=== PATIENT | female | born 1960 | race Caucasian/White ===

== ENCOUNTER 2019-11-12 15:01 | Observation (INO) | payer OTHER ==
[~2019-11-12] VITALS: Ht 157.5 cm; Wt 94.0 kg
[2019-11-12] VITALS (7 sets, daily range): BP systolic 97–178; BP diastolic 43–98
[2019-11-12 15:33] LABS: HEMATOCRIT 37.7 % (37.0-47.0); HEMOGLOBIN 12.5 g/dl (12.0-16.0); IMMATURE GRANULOCYTES 0.1 % (0.0-5.0); MEAN CELL VOLUME 91.7 fL CALC (80.0-100.0); MEAN CORPUSCULAR HGB 30.4 pG CALC (26.0-32.0); MEAN CORPUSCULAR HGB CONC 33.2 g/dL CAL (32.0-36.0); NEUT# 4.6 thou/uL (2.00-7.15); RED BLOOD COUNT 4.11 mill/uL (4.20-5.60); RED CELL DISTRI WIDTH 13.2 % (11.5-15.5)
[2019-11-12 15:37] LABS: GFR 57 ML/MIN (>=60 (CALC)); GFR FOR AFR.AMER. > 60 ML/MIN (>=60 (CALC))
--- NOTE | 2019-11-12 15:50 | NUR ---
PT BROUGHT TO ROOM 9. DR OCASIO CALLED TO BEDSIDE FOR PATIENT WITH COMPLAINTS OF SUDDEN ONSET RIGHT SIDED TEMPORAL HEADACHE, WITH DIZZINESS STARTING 1 HOUR PRIOR TO ARRIVAL. PT DIZZY AND VOMITED X 2. STROKE ALERT CALLED AT 1512. PT TAKEN TO CT VIA STRETCHER. IV STARTED IN CT AT 1527 AND LABS DRAWN AND SENT. PT MEDICATED FOR NAUSEA AT 1528. TELESTROKE EVALUATION DONE IN CT. PT RETURNED TO ED AT 1550. MONITORS IN PLACE. AT BEDSIDE. PT AO X 3. SKIN PINK WARM AND DRY. IN GOWN. MOVES ALL EXTREMITIES. REPORTS HEADACHE 8/10. MEDICATED FOR PAIN AND DIZZINESS AT 1610
[2019-11-12 15:52] LABS: ALBUMIN 4.5 g/dL (3.2-5.0); ALKALINE PHOSPHATASE 84 u/l (38-126); ANION GAP 11 (6-22 (CALC)); BILIRUBIN, TOTAL 0.5 mg/dL (0.0-1.4); BUN 16 mg/dL (7-17); BUN/CREATININE RATIO 16 (12-20 (CALC)); CARBON DIOXIDE 26 mmol/l (22-30); CHLORIDE 103 mmol/l (95-108); CPK 136 u/l (30-165); ETHYL ALCOHOL 0 mg/dl (0-30); GFR 57 ML/MIN (>=60 (CALC)); GFR FOR AFR.AMER. > 60 ML/MIN (>=60 (CALC)); LIPASE 212 u/l (23-300); POTASSIUM 3.8 mmol/l (3.5-5.1); SGOT/AST 29 u/l (14-36); SODIUM 136 mmol/l (137-146); TOTAL PROTEIN 7.7 g/dL (6.3-8.2)
[2019-11-12 15:58] LABS: ACT PARTIAL THROMBO TIME 25.6 SECONDS (20.0-32.5)
[2019-11-12] MEDS ORDERED: BUSPIRONE5 MG PO (16:19)
[2019-11-12] MEDS ORDERED: TRESIBA100 UNIT/M (16:21)
[2019-11-12 16:22] LABS: TSH, 3RD GENERATION 4.15 uIU/mL (0.47 - 4.68)
[2019-11-12] MEDS ORDERED: NOVOLIN 70/30 F1 IN1 (16:22)
--- NOTE | 2019-11-12 16:48 | NUR ---
PT UP TO BEDSIDE COMMODE. VOIDED 200 ML CLEAR YELLOW URINE. SPECIMEN SENT TO LAB
[2019-11-12 16:55] LABS: URINE BILIRUBIN - DIPSTICK NEGATIVE (NEGATIVE); URINE BLOOD DIPSTICK NEGATIVE (NEGATIVE); URINE COLOR YELLOW; URINE GLUCOSE - DIPSTICK NEGATIVE (NEGATIVE); URINE KETONE NEGATIVE (NEGATIVE); URINE LEUK ESTERASE NEGATIVE (NEGATIVE); URINE NITRITE - DIPSTICK NEGATIVE (Negative); URINE PROTEIN - DIPSTICK NEGATIVE (NEG-TRACE); URINE UROBILINOGEN - DIPSTICK 0.2 E.U./dL (0.2)
--- NOTE | 2019-11-12 17:03 | NUR ---
PT MEDICATED FOR CONTINUED HEAD PAIN 12/07
--- NOTE | 2019-11-12 17:50 | NUR ---
PT RESTING ON STRETCHER, AWAITING ADMISSION. CONTINUES TO REPORT HEADACHE 11/07
--- NOTE | 2019-11-12 17:58 | NUR ---
ICU UNABLE TO TAKE REPORT AT THIS TIME
--- NOTE | 2019-11-12 18:10 | NUR ---
ICU UNABLE TO TAKE PATIENT AT THIS TIME
--- NOTE | 2019-11-12 18:15 | NUR ---
SPOKE TO REWIND OPERATOR R/T CONCERNS ABOUT PTS BP.
--- NOTE | 2019-11-12 18:24 | NUR ---
DR SHERIDAN CONTACTED RE: PTS BP IN THE ER. WRITTEN ORDERS FROM ER FAXED TO [facility]. NEW ORDERS FAXED TO [facility].
--- NOTE | 2019-11-12 18:25 | NUR ---
REPORT GIVEN TO DIANE SANDOVAL IN ICU
--- NOTE | 2019-11-12 18:45 | NUR ---
PT TAKEN VIA STRETCHER, MONIOTOR IN PLACE TO ICU
--- NOTE | 2019-11-12 18:50 | NUR ---
RECEIVED REPORT FROM DIANE SANDOVAL.
--- NOTE | 2019-11-12 19:00 | NUR ---
RECEIVED PT AAOX3, NO NEURO DEFICIT NOTED. C/O 11/07 HEADACHE. REVIEWED ROOM SAFETY. CALL MIMS IN REACH.
--- NOTE | 2019-11-12 19:12 | NUR ---
B/P 178, APRESOLINE 10MG IV GIVEN PER JUL.
--- NOTE | 2019-11-12 20:00 | NUR ---
PT RELATED HEADACHE IMPROVED TO /10. NO NEURO DEFICT NOTED. CALL MIMS IN REACH.
[2019-11-12] MEDS ORDERED: LORATADINE10 M1 PO (20:40)
[2019-11-12] MEDS ORDERED: BUSPAR10 M1 PO (20:41)
[2019-11-12] MEDS ORDERED: BUPROPION HCL150 M1 PO (20:43)
[2019-11-12] MEDS ORDERED: GABAPENTIN300 M2 PO (20:44)
[2019-11-12] MEDS ORDERED: TESSALON PER100 MG PO (20:45)
[2019-11-12] MEDS ORDERED: MECLIZINE25 MG PO (21:02)
[2019-11-12] MEDS ORDERED: NOVOLOG FL100 UNIT/M (21:06)
[2019-11-12] MEDS ORDERED: LIPITOR10 M1 PO (21:06)
--- NOTE | 2019-11-12 22:00 | NUR ---
PT WITH EYES CLOSED, RESPONDS TO VERBAL STIMULI. NO DISTRESS NOTED. CALL MIMS IN REACH.
[2019-11-13] VITALS (10 sets, daily range): BP systolic 95–182; BP diastolic 46–82
--- NOTE | 2019-11-13 | NUR ---
PT WITH EYES CLOSED, RESPONDED TO VERBAL STIMULI. PT RELATED HEADACHE IMPROVED. NO NEURO DEFICITS NOTED. NO NEEDS AT THIS TIME. CALL MIMS IN REACH. B/P 110/51 P58 WHILE AWAKE.
--- NOTE | 2019-11-13 02:00 | NUR ---
PT WITH EYES CLOSED, NO DISTRESS NOTED. CALL MIMS IN REACH.
--- NOTE | 2019-11-13 04:24 | NUR ---
ASSISTED PT TO BATHROOM. VOIDED 500CC YELLOW URINE. PT RELATED THE DIZZINESS AND HER HEADACHE HAS IMPROVED. PT RETURNED TO BED. PT'S OWN GLUCOSE MONITOR SYSTEM, READS 69. JUICE AND CRACKERS PROVIDED. CALL MIMS IN REACH.
--- NOTE | 2019-11-13 06:06 | NUR ---
PT AWAKE AND ALERT, ACCU CHECK 100. PTS OWN BS DEVICE READ 90. NO NEEDS AT THIS TIME, CALL MIMS IN REACH.
--- NOTE | 2019-11-13 06:45 | NUR ---
REPORT TO MERLY SANDOVAL.
--- NOTE | 2019-11-13 06:45 | NUR ---
REPORT RECEIVED FROM NINA SANDOVAL CARE ASSUMED.
--- NOTE | 2019-11-13 07:15 | NUR ---
PT RESTING IN BED WITH EYES CLOSED. AROUSES EASILY TO VERBAL STIMULI. PT IS ALERT AND ORIENTED X3. SHIFT ASSESSMENT ALONG WITH [facility] COMPLETED AT THIS TIME. IV PATENT X1. CALL LIGHT IN REACH. WILL CONTINUE TO MONITOR.
--- NOTE | 2019-11-13 08:00 | NUR ---
PT SET UP FOR AM MEAL.
--- NOTE | 2019-11-13 08:59 | NUR ---
DR FULLER AT BEDSIDE AT THIS TIME.
--- NOTE | 2019-11-13 09:26 | NUR ---
JONNY GAVE VERBAL ORDERS FOR [facility]
--- NOTE | 2019-11-13 09:30 | NUR ---
PT STATES THAT HER HEADACHE HAS WORSENED AND SHE HAS PAIN ALL OVER. PT STATES THAT NECK AND JAW ARE TIGHTENING. PT IS HYPERVENTILATING AT THIS TIME. O2 SATS 100%. HEART RATE 60-80S. BP NOW 215/72. DR FULLER NOTIFIED. PHARMACY CALLED TO VERIFY THAT SYMPTOMS ARE NOT A MEDICATION REACTION. ORDERS RECEIVED FOR ATIVAN. BREATHING EXCERCISES REVEIWED WITH PATIENT. ATIVAN GIVEN PER JUL. ICE PACK PROVIDED FOR NECK. THIS NURSE REMAINED AT BEDSIDE WITH SPOUSE UNTIL PATIENT CALMED.
--- NOTE | 2019-11-13 10:02 | NUR ---
PT NOW RESTING IN BED RESP ARE EVEN AND UNLABORED. BP 163/64. SPOUSE AT BEDSIDE. PT AND SPOUSE REASSURED. CALL LIGHT IN REACH. WILL CONTINUE TO MONITOR.
--- NOTE | 2019-11-13 11:00 | NUR ---
PT RESTING IN BED WITH EYES CLOSED. AROUSES TO VERBAL STIMULI. RESP ARE EVEN AND UNLABORED. VSS ON MONITOR. CALL LIGHT IN REACH. WILL CONTINUE TO MONITOR
--- NOTE | 2019-11-13 11:47 | NUR ---
PT RESTING IN BED WITH SPOUSE AT BEDSIDE. RESP ARE EVEN AND UNLABORED. NO DISTRESS NOTED. CALL LIGHT IN REACH. WILL CONTINUE TO MONITOR.
--- NOTE | 2019-11-13 13:00 | NUR ---
PT TO RADIOLOGY VIA WHEELCHAIR FOR MRI.
--- NOTE | 2019-11-13 13:50 | NUR ---
PT RETURNED FROM RADIOLOGY VIA WHEELCHAIR. PT ASSISTED BACK TO BED AND PLACED ON MONITORS.
--- NOTE | 2019-11-13 16:00 | NUR ---
PT ASSISTED TO BATHROOM TO VOID. PT THEN ASSISTED BACK TO BED. CALL LIGHT IN REACH. WILL CONTINUE TO MONITOR.
[2019-11-13] MEDS ORDERED: ASPIRIN CHEWABL81 MG PO (16:26)
[2019-11-13] MEDS ORDERED: XANAX0.25 MG PO (16:28)
--- NOTE | 2019-11-13 16:30 | NUR ---
DR FULLER NOTIFIED OF MRI RESULTS
--- NOTE | 2019-11-13 17:43 | NUR ---
PT SET UP FOR PM MEAL. GUEST TRAY PROVIDED FOR SPOUSE PER PATIENT REQUEST.
--- NOTE | 2019-11-13 18:00 | NUR ---
DISCHARGE INSTRUCTIONS REVIEWED WITH PATIENT AND SPOUSE. BOTH VERBALIZED UNDERSTANDING. IV DC'D.CATH TIP INTACT. PT TOLERATED WELL.
--- NOTE | 2019-11-13 18:15 | NUR ---
Discharge instructions given. Patient verbalizes understanding of same. Discharged in stable condition via Wheelchair to Home with spouse. All belongings sent with pt.
== END 2019-11-13 18:15 | disposition home or self-care (01) | DRG 103 ==
LOC: ED 15:01 → ED-I 17:13 → ED 17:33 → ICU 17:34
PROVIDERS: ADMIT Internal Medicine; ATTEND Internal Medicine
DX: G43.119 Migraine with aura, intractable, without status migrainosus (principal); I16.0 Hypertensive urgency; I10 Essential (primary) hypertension; E11.319 Type 2 diabetes mellitus with unspecified diabetic retinopathy without macular edema; E11.36 Type 2 diabetes mellitus with diabetic cataract; H26.9 Unspecified cataract; H35.30 Unspecified macular degeneration; I25.10 Atherosclerotic heart disease of native coronary artery without angina pectoris; F41.0 Panic disorder [episodic paroxysmal anxiety]; Z79.4 Long term (current) use of insulin; Z11.59 Encounter for screening for other viral diseases
CPT/HCPCS: A9579; J1650; J2060; Q9967

== ENCOUNTER 2019-11-20 08:18 | Observation (INO) | payer OTHER ==
[~2019-11-20] VITALS: Ht 157.5 cm; Wt 91.8 kg
[~2019-11-20 08:18] MED LIST: ASPIRIN CHEWABL81 MG PO; BUPROPION HCL150 M1 PO; BUSPAR10 M1 PO; BUSPIRONE5 MG PO; GABAPENTIN300 M2 PO; LIPITOR10 M1 PO; LORATADINE10 M1 PO; MECLIZINE25 MG PO; NOVOLIN 70/30 F1 IN1; NOVOLOG FL100 UNIT/M; TESSALON PER100 MG PO; TRESIBA100 UNIT/M; XANAX0.25 MG PO
--- NOTE | 2019-11-20 08:33 | NUR ---
PT TO XRAY WITH NURSE VIA STRETCHER AWAKE ALERT AND RESPONSIVE
--- NOTE | 2019-11-20 09:03 | NUR ---
PT RETURNED FROM CT AND IS AWAITING RESULTS
[2019-11-20 09:17] LABS: ALBUMIN 4.1 g/dL (3.2-5.0); ALKALINE PHOSPHATASE 84 u/l (38-126); ANION GAP 9 (6-22 (CALC)); BILIRUBIN, TOTAL 0.4 mg/dL (0.0-1.4); BUN 13 mg/dL (7-17); BUN/CREATININE RATIO 15 (12-20 (CALC)); CARBON DIOXIDE 27 mmol/l (22-30); CHLORIDE 108 mmol/l (95-108); CHOLESTEROL HDL RATIO 3.2 (<4.4 (CALC)); CREATININE 0.9 mg/dL (0.5-1.0); GFR > 60 ML/MIN (>=60 (CALC)); GFR FOR AFR.AMER. > 60 ML/MIN (>=60 (CALC)); POTASSIUM 4.5 mmol/l (3.5-5.1); SGOT/AST 25 u/l (14-36); SODIUM 140 mmol/l (137-146); TOTAL PROTEIN 7.3 g/dL (6.3-8.2)
[2019-11-20 09:29] LABS: MYOGLOBIN 40 ng/mL (0 - 62)
[2019-11-20 09:33] LABS: HEMATOCRIT 40.5 % (37.0-47.0); HEMOGLOBIN 13.2 g/dl (12.0-16.0); IMMATURE GRANULOCYTES 0.2 % (0.0-5.0); MEAN CELL VOLUME 93.1 fL CALC (80.0-100.0); MEAN CORPUSCULAR HGB 30.3 pG CALC (26.0-32.0); MEAN CORPUSCULAR HGB CONC 32.6 g/dL CAL (32.0-36.0); NEUT# 2.49 thou/uL (2.00-7.15); RED BLOOD COUNT 4.35 mill/uL (4.20-5.60); RED CELL DISTRI WIDTH 12.8 % (11.5-15.5)
[2019-11-20 09:41] LABS: INTERNATIONAL NORMALIZED RATIO 0.9 RATIO (0.7-1.3); PROTHROMBIN TIME 9.7 SECONDS (9.0-12.5)
--- NOTE | 2019-11-20 09:59 | NUR ---
PT RESTING COMFORTABLY WAITING ON RESULTS FROM TESTING
--- NOTE | 2019-11-20 10:50 | NUR ---
PT IS RESTING COMFORTABLY WAITING FOR ROOM ASSIGNMENT
--- NOTE | 2019-11-20 11:50 | NUR ---
PT IS RESTING. NO DISTRESS NOTED.
--- NOTE | 2019-11-20 12:15 | NUR ---
PT WAS TRANSFERRED UPSTAIRS BY STRETCHER. Admission Note Report Given to: SYMONE Transported by: Wheelchair X Stretcher Transported with: X Nurse Transporter X Patent IV O2 X Studio Designer Location: ICU X MS2
[2019-11-20 12:25] VITALS: BP 125/54
--- NOTE | 2019-11-20 13:00 | NUR ---
PT ARRIVES TO ROOM 272 FROM ER VIA WHEELCHAIR, ALERT AND ORIENTED X 3. LUNGS CLEAR, RA. NO NEURO DEFICITS NOTED. ACCOMPANYING. MEAL TRAY PROVIDED, ENJOYED.
[2019-11-20 15:17] VITALS: BP 130/50
--- NOTE | 2019-11-20 16:48 | NUR ---
PT SEEN AT REST IN THE BED, NO DISTRESS, NO NEURO ISSUE. AT BEDSIDE.
--- NOTE | 2019-11-20 19:27 | NUR ---
ASSESSMENT COMPLETED. IV SITE PATENT AND SL, FLUSHED WITH NS. C/O PAIGE 11/07 AND MEDICATED WITH ORDERED PRN TYLENOL; WILL REASSESS. DENIES FURTHER NEEDS. NEURO CHECK WNL. ENCOURAGED TO CALL FOR ANY NEEDS. CALL LIGHT IS IN REACH.
[2019-11-20 19:30] VITALS: BP 160/53
[2019-11-20 22:27] VITALS: BP 167/68
--- NOTE | 2019-11-20 22:27 | NUR ---
PT. C/O PAIGE AND ICE PACK APPLIED TO BACK OF THE NECK AND COFFEE PROVIDED. VS OBTAINED AND B/P REMAINS UNDER PARAMETER OF PRN MEDS; WILL CONTINUE TO MONITOR.
[2019-11-20 23:55] VITALS: BP 178/71
--- NOTE | 2019-11-21 00:14 | NUR ---
B/P 178/71 AND MEDICATED WITH ORDERED PRN APRESOLINE; WILL REASSESS. ICE PACK PROVIDED FOR PAIGE. PT. IS SLIGHTLY ANXIOUS AND OFFERED PRN ORDERED XANAX AND PT. DECLINES. CALL LIGHT IS IN REACH. WILL CONTINUE TO MONITOR.
[2019-11-21 01:15] VITALS: BP 123/58
--- NOTE | 2019-11-21 03:43 | NUR ---
UA OBTAINED. VSS. PT. REPORTS FEELING SLIGHTLY NAUSEOUS AND SWELLING TO BUE. SLIGHT TIGHTNESS NOTED TO BUE AND PROPPED UP ON PILLOWS. PT. ABLE TO MOVE EXTREMETIES WELL AND HAS GOOD PULSES. ENCOURAGED TO CALL FOR ANY NEEDS. CALL LIGHT IS IN REACH.
[2019-11-21 03:44] VITALS: BP 143/51
[2019-11-21 04:28] LABS: URINE BILIRUBIN - DIPSTICK NEGATIVE (NEGATIVE); URINE BLOOD DIPSTICK NEGATIVE (NEGATIVE); URINE COLOR YELLOW; URINE GLUCOSE - DIPSTICK NEGATIVE (NEGATIVE); URINE KETONE NEGATIVE (NEGATIVE); URINE LEUK ESTERASE NEGATIVE (NEGATIVE); URINE NITRITE - DIPSTICK NEGATIVE (Negative); URINE PH 5.5 (4.5-8.0); URINE PROTEIN - DIPSTICK NEGATIVE (NEG-TRACE); URINE SPECIFIC GRAVITY 1.015; URINE UROBILINOGEN - DIPSTICK 0.2 E.U./dL (0.2)
[2019-11-21] MEDS ORDERED: BENICAR40 MG PO (09:51)
[2019-11-21] MEDS ORDERED: SYNTHROID50 MCG PO (09:58)
[2019-11-21 10:59] VITALS: BP 167/63
[2019-11-21] MEDS ORDERED: HYDROXYZINE HYD25 MG PO (11:14)
--- NOTE | 2019-11-21 11:57 | NUR ---
PT UP IN CHAIR AT BEDSIDE WITH NO S/S OF DISTRESS. RESPIRATIONS ARE EVEN AND NON LABORED. NO COUGH NOTED. AMBULATORY WITH STEADY GAIT AND BALANCE. MD IN TO SEE PT AMD NEW ORDER FOR DISCARGE. PT AWARE AND DISCHARGE COMPLETED. PT HAD LARGE BM THIS AM. MEDICATED FOR HEACHACHE AT 2 ON SCALE OF 1-10 WITH 10 GREATEST. WILL CONTINUE TO OBSERVE UN TIL DISCHARGE WITH SPOUSE.
[2019-11-21 12:08] VITALS: BP 168/51
== END 2019-11-21 12:32 | disposition home or self-care (01) | DRG 305 ==
LOC: ED 08:18 → ED-I 10:39 → ED 10:56 → ED-I 10:57 → MS2 10:57
PROVIDERS: Emergency Medicine; ADMIT Internal Medicine; ATTEND Internal Medicine
DX: I16.0 Hypertensive urgency (principal); I10 Essential (primary) hypertension; F41.0 Panic disorder [episodic paroxysmal anxiety]; F41.8 Other specified anxiety disorders; G43.909 Migraine, unspecified, not intractable, without status migrainosus; E11.319 Type 2 diabetes mellitus with unspecified diabetic retinopathy without macular edema; I25.10 Atherosclerotic heart disease of native coronary artery without angina pectoris; E11.40 Type 2 diabetes mellitus with diabetic neuropathy, unspecified; H35.30 Unspecified macular degeneration; Z79.4 Long term (current) use of insulin; Z86.73 Personal history of transient ischemic attack (TIA), and cerebral infarction without residual deficits; Z20.828 Contact with and (suspected) exposure to other viral communicable diseases
CPT/HCPCS: G0378; J1650